=== PATIENT | male | born 1970 | race Caucasian/White ===

== ENCOUNTER 2025-03-06 14:29 | Outpatient (OUT) | payer OTHER, SELFPAY ==
--- NOTE | 2025-03-06 15:10 | PM.PRESUREVA ---
History of Present Illness History of Present Illness Chief complaint: Prostate Cancer Narrative: Patient presents for presurgical testing. The patient reports a history of increasing PSA with an abnormal prostate MRI. The patient denies any urinary complaints whatsoever. He states he has a history of PVCs controlled with metoprolol. Review of Systems ROS Narrative REVIEW OF SYSTEMS: Negative except as stated in HPI, ten or more systems reviewed. Constitutional: No fever, chills, weakness ENT: No sore throat or epistaxis Cardiovascular: No edema, chest pain, or activity intolerance Respiratory: No shortness of breath, cough, or wheezing Musculoskeletal: No joint pain or swelling Gastrointestinal: No abdominal pain, constipation, diarrhea, or vomiting Genitourinary: No dysuria or hematuria Neurological: No numbness, tingling, weakness, or headache Psychiatric: No mood changes PFSH PFS Medical History (Updated 03/06/25 @ 14:51 by Kaye Alejandro NP) Spontaneous pneumothorax (2017) ?J93.83 - Other pneumothorax (ICD-10) Spontaneous pneumothorax (2019) ?J93.83 - Other pneumothorax (ICD-10) Reactive airway disease ?J45.909 - Unspecified asthma, uncomplicated (ICD-10) PVCs (premature ventricular contractions) ?I49.3 - Ventricular premature depolarization (ICD-10) Anxiety ?F41.9 - Anxiety disorder, unspecified (ICD-10) Hypertension ?I10 - Essential (primary) hypertension (ICD-10) Hyperlipidemia ?E78.5 - Hyperlipidemia, unspecified (ICD-10) Prostate cancer ?C61 - Malignant neoplasm of prostate (ICD-10) Surgical History (Updated 03/06/25 @ 14:40 by Kaye Alejandro NP) H/O chest tube placement (~2019) ?Z98.890 - Other specified postprocedural states (ICD-10) H/O colonoscopy ?Z98.890 - Other specified postprocedural states (ICD-10) H/O prostate biopsy ?Z98.890 - Other specified postprocedural states (ICD-10) Family History (Updated 03/06/25 @ 14:48 by Kaye Alejandro NP) Other ALS (amyotrophic lateral sclerosis) Family history of colon cancer Family history of diabetes mellitus Family history of hypertension Family history of stroke Social History (Updated 03/06/25 @ 14:46 by Kaye Alejandro NP) Within the past year, how often did you have a drink containing alcohol: 4 or more times a week Within the past year, how many standard drinks containing alcohol did you have on a typical day: 1 or 2 Total score: 0 Score interpretation: A score less than 4 is consistent with normal alcohol consumption. 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 Highest level of school completed/degree received: high school graduate Meds Home Medications and Allergies Home Medications ?Medication ?Instructions ?Recorded ?Confirmed ?Type metoprolol succinate 25 mg 25 mg PO DAILY 03/06/25 03/06/25 History tablet,extended release 24 hr rosuvastatin 10 mg tablet 10 mg PO DAILY 03/06/25 03/06/25 History Allergies Allergy/AdvReac Type Severity Reaction Status Date / Time No Known Drug Allergies Allergy Verified 03/06/25 14:43 Exam Narrative Exam Narrative: Constitutional: Awake, alert, comfortable, well-appearing, nontoxic, interactive, vital signs as charted Head: Normocephalic, atraumatic Neck: Supple, normal appearance, normal range of motion, no meningeal signs, no lymphadenopathy Respiratory: No respiratory distress, breath sounds clear Cardiovascular: Regular rate, irregular rhythm, no murmur Abdomen: Nontender, normal bowel sounds, soft, no CVA tenderness Musculoskeletal: Normal gait, no swelling or edema Skin: No rashes or induration, no lesions, only visible skin inspected Neuro: No neurological deficits, normal sensation Psychiatric: Oriented ?3, normal affect Assessment and Plan Assessment and Plan (1) Prostate cancer: Plan TRUS/prostate biopsy scheduled with Dr. Hendrix March 22, 2025.
--- NOTE | 2025-03-06 15:12 | ECG_ITS ---
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 Measurements Intervals [place] Rate: 65 P: 32 NC: 134 QRS: 54 QRSD: 94 T: 35 QT: 389 QTc: 405 Interpretive Statements SINUS RHYTHM WITH OCCASIONAL VENTRICULAR PREMATURE COMPLEXES WITH OCCASIONAL SUPRAVENTRICULAR PREMATURE COMPLEXES Otherwise normal ECG No previous ECG available for comparison Electronically Signed On 03-06-2025 21:56:17 EDT by LEIGH DE SANTIAGO M.D.
[2025-03-06 15:17] LABS: Basophils Percent Auto 0.7 % (0.2-2.0); Eosinophils Absolute Auto 0.2 10^3/uL (0.0-0.7); Eosinophils Percent Auto 4.3 % (0.9-7.0); Hematocrit 43.7 % (42.0-54.0); Hemoglobin 15.1 g/dL (14.0-18.0); Immature Granulocytes Abs Auto 0.01 10^3/uL (0.00-0.03); Immature Granulocytes Pct Auto 0.2 % (0.0-0.5); Lymphocytes Absolute Auto 1.2 10^3/uL (1.2-3.8); Lymphocytes Percent Auto 26.6 % (20.5-60.0); Mean Corpuscular HGB Conc 34.6 g/dL (29.9-35.2); Mean Corpuscular Hemoglobin 29.4 pg (25.9-34.0); Mean Platelet Volume 10.9 fL (9.5-13.5); Monocytes Absolute Auto 0.4 10^3/uL (0.3-0.8); Monocytes Percent Auto 8.6 % (1.7-12.0); Neutrophils Absolute Auto 2.7 10^3/uL (1.4-6.5); Neutrophils Percent Auto 59.6 % (43.0-75.0); Platelet Count 239 10^3/uL (150-450); Red Blood Count 5.14 10^6/uL (4.70-6.10); Red Cell Distribution Width 12.5 % (11.0-15.0); White Blood Count 4.4 10^3/uL (4.0-11.0)
[2025-03-06 15:25] LABS: Anion Gap 11.7; BUN Creatinine Ratio 11.2; Calcium 9.3 mg/dL (8.5-10.1); Carbon Dioxide 28.7 mmol/L (21.0-32.0); Chloride 103 mmol/L (98-107); Estimated GFR (African America >60 (>=60 mL/min/1.73m^2); Estimated GFR (Non-African Ame >60 (>=60 mL/min/1.73m^2); Glucose 110 mg/dL (74-106); Potassium 4.4 mmol/L (3.5-5.1); Sodium 139 mmol/L (136-145)
[2025-03-06 15:48] LABS: INR 1.08; Partial Thromboplastin Time 29.9 sec (22.3-36.2); Prothrombin Time 11.4 sec (9.0-11.6)
== END 2025-03-06 14:30 | disposition home or self-care (01) ==
LOC: PST 14:32
PROVIDERS: Family Provider Family Medicine; PCP Family Medicine; Visit Provider Urology
DX: Z01.810 Encounter for preprocedural cardiovascular examination (principal); Z01.812 Encounter for preprocedural laboratory examination; Z01.818 Encounter for other preprocedural examination; Z85.46 Personal history of malignant neoplasm of prostate
CPT/HCPCS: 36415; 80048; 85025; 85610; 85730; 93005; G0463

== ENCOUNTER 2025-03-22 06:49 | Day surgery (SDC) | payer OTHER, SELFPAY ==
[2025-03-06 14:58] VITALS: BP 133/93; PULSE 61; TEMP 36.4; O2SAT 96; BMI 27.8
--- NOTE | 2025-03-22 06:51 | US_ITS ---
[address] [address] Patient Name: JULIO ROSA MRN: [id number] date: 1970 Sex: M Assigned Patient Location: [facility] Current Patient Location: Accession/Order Number: [id number] Exam Date: 03/22/2025 16:28 Report Date: 03/22/2025 16:29 At the request of: JULIO ACEVEDO MD Procedure: US prostate Prostate ultrasound HISTORY: Abnormal PSA The prostate measures 5.3 x 4.8 x 3.2 cm. Prostate volume 41.9 cc. Prostate volume 41.9 cc. Impression dictated by: Rashawn Cary M.D. 03/22/2025 4:29 PM Dictation Location: [place] [address] Electronically authenticated by: [id number] Y Date: 03/22/2025 16:29
[2025-03-22 06:55] VITALS: BP 120/84; PULSE 57; TEMP 36.2; O2SAT 98; BMI 27.5
[2025-03-22] MEDS: CEFAZOLIN SODIUM 2 GM/50 ML D5W PREMIX IV (07:19)
[2025-03-22] MEDS: GENTAMICIN SULFATE 120 MG in 0.9 % SODIUM CHLORIDE 100 ML 206 MG IV (07:57)
[2025-03-22] MEDS: LIDOCAINE 2% JELLY 10 ML UR (08:21)
--- NOTE | 2025-03-22 08:23 | PM.URSON ---
Urology Surgery Operative Note Operative Note Procedure Date: 03/22/25 Time Out Performed: yes Pre-op Diagnosis: Prostate cancer; active surveillance Post-op Diagnosis: same as pre-op Procedures performed: 1. Transrectal ultrasound of the prostate. 2. Prostate needle biopsies Anesthesia: MAC and local Primary Surgeon: Smith Hendrix Complications: None Estimated blood loss (mL): 20 Findings: Hypoechoic area at right mid aspect Specimens: Prostate needle biopsies Drains: None none Indications for Procedures: This gentleman has prostate cancer with a Wright score of 3+4 = 7 on 1 core with 14% of the core involved. This was diagnosed in January 2024. He also had ISABELLA. He now presents for a confirmatory biopsy. His ANTHONY has been benign. His PSA has remained stable in the 3-1/2-4-1/2 range. He has signed an informed consent after risks were explained. Some of these risks include bleeding, infection, urosepsis and anesthesia to name a few. He has been taking his quinolone antibiotics preoperatively. Detailed description of Procedure: The [facility] was [facility] and brought into the endoscopy suite. He was in the left lateral decubitus position. Timeout was done by all parties in the room. We all agreed upon the patient's identification and the planned procedures for this patient. MAC anesthesia was then administered. The patient's rectum was then swabbed with a Betadine soaked sponge twice. We then placed 2% lidocaine gel per rectum. The ultrasound probe was passed per rectum and the prostate was scanned in the transverse and sagittal views. The volume was calculated to be 42 g. At the right mid aspect there was a identifiable hypoechoic area. This corresponded to his previously diagnosed prostate cancer and his MRI abnormality. While in the sagittal view we then began taking biopsies on the left side going from the base towards the apex. We divided up into 4 levels and from each level took 2 biopsies. On the right side at the base we took 2 biopsies. For the next 3 levels we took 4 biopsies from each of those levels. At the end of the procedure we had 22 satisfactory cores. The probe was removed. He was then transferred to PACU in stable condition.
[2025-03-22 08:26] VITALS: BP 111/69; PULSE 65; TEMP 36.5; O2SAT 96
[2025-03-22 08:41] VITALS: BP 114/78; PULSE 62; O2SAT 97
[2025-03-22 08:56] VITALS: BP 119/71; PULSE 55; O2SAT 96
[2025-03-22 09:10] VITALS: BP 111/74; PULSE 53; O2SAT 96
== END 2025-03-22 09:10 | disposition home or self-care (01) ==
LOC: SURGOUT 06:50
PROVIDERS: Family Provider Family Medicine; PCP Family Medicine; Visit Provider Urology
PROC: (CPT 902; principal; 2025-03-22 08:00)
DX: C61 Malignant neoplasm of prostate (principal); E78.5 Hyperlipidemia, unspecified; I10 Essential (primary) hypertension; F41.9 Anxiety disorder, unspecified; Z87.891 Personal history of nicotine dependence; J45.909 Unspecified asthma, uncomplicated
CPT/HCPCS: 55700; 36415; 76872; J0690; J1100; J1580; J1885; J2250; J2405; J2704; J3010